=== PATIENT | male | born 1970 | race Hispanic/Latino ===

== ENCOUNTER 2018-07-06 21:34 | Emergency (ER) | payer SELFPAY ==
[~2018-07-06] VITALS: Ht 175.3 cm; Wt 79.4 kg
[2018-07-06 23:52] LABS: CLARITY,URINE CLOUDY (CLEAR); COLOR,URINE YELLOW (YELLOW); LEUKOCYTE ESTERASE ,URINE 2+ (NEGATIVE); NITRITE,URINE NEGATIVE (NEGATIVE); PROTEIN,URINE DIPSTICK 1+ (NEGATIVE)
[2018-07-06 23:53] LABS: AMPHETAMINES SCREEN,URINE NEGATIVE (NEGATIVE); BENZODIAZEPINES SCREEN,URINE NEGATIVE (NEGATIVE); BILIRUBIN,URINE NEGATIVE (NEGATIVE); KETONES,URINE NEGATIVE (NEGATIVE); PHENCYCLIDINE SCREEN,URINE NEGATIVE (NEGATIVE); URINE UROBILINOGEN 0.2 mg/dL (0.2 - 1)
[2018-07-07 00:06] LABS: BACTERIA,URINE MANY /HPF; EPITHELIAL CELLS,URINE FEW /LPF; TRANSITIONAL EPI CELLS,URINE FEW; WBC,URINE (MAN) >50 /HPF (0-5)
[2018-07-07] MEDS ORDERED: BACTRIM DS TAB1 EACH PO (01:13)
[2018-07-07] MEDS ORDERED: TRIMETHOPRIM/SULFAMETHOXAZOLE 160-800 MG TAB PO ONE (01:15)
--- NOTE | 2018-07-07 01:31 | Diagnostic Imaging Report ---
EXAM: CT Abdomen and Pelvis WITHOUT contrast INDICATION: Right flank pain and dysuria. COMPARISON: None. TECHNIQUE: Abdomen and pelvis were scanned utilizing a multidetector helical scanner from the lung base to the pubic symphysis without administration of IV contrast. Absence of intravenous contrast decreases sensitivity for detection of focal lesions and vascular pathology. Coronal and sagittal reformations were obtained. Renal stone protocol was performed. IV CONTRAST: None. ORAL CONTRAST: Water RADIATION DOSE: Total DLP: 236.02 mGy*cm Estimated effective dose: (DLP x 0.015 x size factor) mSv COMPLICATIONS: None FINDINGS: LINES and TUBES: None. LOWER THORAX: Unremarkable HEPATOBILIARY: No focal hepatic lesions. No biliary ductal dilation. GALLBLADDER: No radio-opaque stones or sludge. No wall thickening. SPLEEN: No splenomegaly. PANCREAS: No focal masses or ductal dilatation. ADRENALS: No adrenal nodules KIDNEYS/URETERS: Mild left pelvocaliectasis. Small right extrarenal pelvis. No cystic or solid mass lesions. No stones. GI TRACT: No abnormal distention, wall thickening, or evidence of bowel obstruction. There are diverticula within the colon without evidence of diverticulitis. Appendix is normal. PELVIC ORGANS/BLADDER: The urinary bladder is moderately to markedly distended. There is diffuse urinary bladder wall thickening. Broad-based diverticulum off the posterior wall of the urinary bladder measures 3.5 cm on image 122. The prostate is mildly prominent measuring 5.4 x 4.5 cm in sagittal and AP dimensions. Punctate prostatic calcification. LYMPH NODES: No lymphadenopathy. VESSELS: Unremarkable. PERITONEUM / RETROPERITONEUM: No free air or fluid. BONES: There are degenerative changes in the lumbar spine. SOFT TISSUES: Small fat-containing umbilical hernia. IMPRESSION: 1. Diffuse wall thickening of the urinary bladder despite of moderate to marked distention may in part reflect neurogenic bladder. This can also be seen with detrusor hypertrophy secondary to obstructive uropathy. Cystitis is within the differential diagnosis in the proper clinical setting (dysuria). Correlate with urinalysis. 2. Mildly enlarged prostate. 3. Mild left pelvocaliectasis. Signed by: Dr. Raul Auguste M.D. on 07/07/2018 1:28 AM
[2018-07-07] MEDS ORDERED: FLOMAX0.4 MG PO (01:35)
[2018-07-07] MEDS ORDERED: LIDOCAINE HCL 2% 30 ML TUBE ONE (02:59)
[2018-07-07] MEDS ORDERED: LIDOCAINE JELLY 2% 10ML URO-JET ONE (03:02)
[2018-07-07 04:07] LABS: BASOPHILS # (AUTO) 0.1 (0.0-0.1); BASOPHILS % 0.6 % (0.0-1.0); EOSINOPHILS # (AUTO) 0.3 (0.0-0.4); EOSINOPHILS % 2.7 % (0.0-6.0); HEMATOCRIT 40.3 % (38.2-49.6); HEMOGLOBIN 13.9 g/dL (14.0-18.0); LYMPHOCYTES # (AUTO) 1.7 (1.0-3.2); LYMPHOCYTES % 15.7 % (18.0-39.1); MEAN CORPUSCULAR HEMOGLOBIN 33.3 pg (28-32); MEAN CORPUSCULAR HGB CONC 34.5 g/dL (31-35); MEAN CORPUSCULAR VOLUME 96.4 fL (81-99); MONOCYTES # (AUTO) 1.6 (0.2-0.8); MONOCYTES % 14.7 % (4.4-11.3); NEUTROPHILS # (AUTO) 7.2 (2.1-6.9); PLATELET COUNT 260 x10e3/uL (140-360); RED BLOOD COUNT 4.18 x10e6/uL (4.3-5.7)
[2018-07-07] MEDS ORDERED: LIDOCAINE JELLY 2% 10ML URO-JET TOP ONE (04:15)
[2018-07-07 04:42] LABS: ALANINE AMINOTRANSFERASE 22 IU/L (0-55); ALBUMIN 3.5 g/dL (3.5-5.0); ALKALINE PHOSPHATASE 91 IU/L (40-150); ANION GAP 15.3 mmol/L (8-16); BLOOD UREA NITROGEN 5 mg/dL (7-26); BUN/CREATININE RATIO 7 (6-25); CALCIUM 9.2 mg/dL (8.4-10.2); CARBON DIOXIDE 20 mmol/L (22-29); CHLORIDE 102 mmol/L (98-107); CREATININE, SERUM 0.71 mg/dL (0.72-1.25); EST GLOMERULAR FILTRATION RATE > 60 ML/MIN (60-); GLUCOSE 87 mg/dL (74-118); POTASSIUM 3.3 mmol/L (3.5-5.1); SODIUM 134 mmol/L (136-145)
[2018-07-07 05:58] VITALS: BP 115/76
== END 2018-07-07 06:47 | disposition home or self-care (01) ==
LOC: ER 21:34
DX: R30.0 Dysuria (principal); R33.9 Retention of urine, unspecified; N30.91 Cystitis, unspecified with hematuria; N40.1 Benign prostatic hyperplasia with lower urinary tract symptoms
CPT/HCPCS: 36415; 51700; 74176; 80053; 80307; 80320; 81001; 85025; 99284

== ENCOUNTER 2018-07-14 19:30 | Emergency (ER) | payer SELFPAY ==
[~2018-07-14] VITALS: Ht 175.3 cm; Wt 79.4 kg
[~2018-07-14 19:30] MED LIST: BACTRIM DS TAB1 EACH PO; FLOMAX0.4 MG PO
--- OUTSIDE RECORDS SUMMARY | 2018-07-14 19:33 | XMS REPORT | Clinical Summary ---
Author Author [facility] Organization [facility] Address Unknown Phone Unavailable Care Team Providers Care Distributor Of Directories Name Role Phone PCP Unavailable Allergies No Known Allergies Medications End Date Status Medication Sig Dispensed Refills Start Date Active acetaminophen-codeine Take 1 tablet 30 tablet 0 (TYLENOL/CODEINE #3) by mouth 7 300-30 mg per every 4 hours tabletIndications: Nodule as needed for of finger of right hand Pain. Active piroxicam (FELDENE) 20 mg Take 1 90 capsule 0 capsuleIndications: capsule by 7 Closed nondisplaced mouth daily fracture of left With food calcaneus with routine healing, unspecified portion of calcaneus, subsequent encounter Active ibuprofen (MOTRIN) 600 mg Take 1 tablet 30 tablet 0 tablet by mouth 7 every 8 hours as needed for Pain. 07/17/2018 Active hyoscyamine (LEVSIN/SL) Place 1 30 tablet 0 0.125 mg sublingual tablet under 9 tabletIndications: tongue every Hemorrhagic cystitis 4 hours as needed for up to 10 days for Cramping. Active traMADol (ULTRAM) 50 mg Take 1 tablet 30 tablet 0 tabletIndications: by mouth 9 Hemorrhagic cystitis every 6 hours as needed for Pain. 07/07/2018 Discontinued cephALEXin (KEFLEX) 500 Take 1 40 capsule 0 mg capsuleIndications: capsule by 9 Hemorrhagic cystitis mouth 4 times daily for 10 days. Active Problems Problem Noted Date Acute left ankle pain 03/26/2017 Impaired functional mobility, balance, gait, and endurance 03/26/2017 Acute pain of left foot 01/13/2017 Fracture follow-up 11/03/2016 History of heavy alcohol consumption 2016 Closed nondisplaced fracture of left calcaneus with routine healing 2016 Impaired activities of daily living 05/25/2015 [place]atur night palsy 05/24/2015 Nodule of finger of right hand 08/29/2014 Dermatitis 09/07/2006 Encounters Care Team Description Date Type Specialty Kip Harrison MD Robinson, David J, MD Hemorrhagic cystitis (Primary Dx); Acute urinary retention 07/07/2018 Emergency Emergency Medicine 07/07/2018 Travel after 07/13/2017 Immunizations Name Dates Previously Given Next Due Tdap Tetanus, diphtheria, 03/07/2011 acellular pertussis Vaccine Family History Medical History Relation Name Comments Heart Father Hypertension Father Arthritis Mother Hypertension Mother Relation Name Status Comments Father Alive Mother Alive Social History Date Tobacco Use Types Packs/Day Years Used Current Every Day Smoker Cigarettes 1 15 Smokeless Tobacco: Never Used Tobacco Cessation: Ready to Quit: No; Counseling Given: Yes Alcohol Use Drinks/Week oz/Week Comments Yes 12 pack a day Sex Assigned at Date Recorded Not on file Industry Job Start Date Occupation Not on file Not on file Not on file Travel End Travel History Travel Start No recent travel history available. Last Filed Vital Signs Time Taken Vital Sign Reading 07/07/2018 5:45 PM CDT Blood Pressure 130/71 07/07/2018 5:45 PM CDT Pulse 64 07/07/2018 5:45 PM CDT Temperature 36.9 C (98.4 F) 07/07/2018 5:45 PM CDT Respiratory Rate 18 07/07/2018 5:45 PM CDT Oxygen Saturation 99% - Inhaled Oxygen - Concentration 07/07/2018 8:38 AM CDT Weight 74.6 kg (164 lb 8 oz) - Height - 05/07/2017 1:03 PM [employer] Body Mass Index 22.94 Plan of Treatment Not on file Procedures Comments Procedure Name Priority Date/Time Associated Diagnosis BMP POC Routine 07/07/2018 12:15 PM CDT UA CHEMISTRIES STAT 07/07/2018 12:05 PM CDT after 07/13/2017 Results * BMP POC (07/07/2018 12:15 PM CDT) CO2 POC 24Comment: Physician Notified 21 - 32 mmol/L [facility] Chloride POC 102 98 - 107 mmol/L [facility] Potassium POC 3.7 3.50 - 5.10 mmol/L [facility] 1 Sodium POC 136 136 - 145 mmol/L [facility] 1 Glucose POC 96 74 - 106 mg/dL [facility] 1 Urea Nitrogen 5 (L) 7 - 18 mg/dL [facility] POC [facility] 1 Creatinine POC 0.6 0.6 - 1.3 mg/dL [facility] 1 Calcium Ionized 1.07 (L) 1.15 - 1.29 mmol/L [facility] POC [facility] 1 Hemoglobin POC 14.6 14.0 - 18.0 g/dL [facility] 1 Hematocrit POC 43.0 40.0 - 54.0 % [facility] 1 GFR, Estimated >60 mL/min/1.73 m2 [facility] 1 GFR, Estim, >60 mL/min/1.73 m2 [facility] Afr-Am [facility] 1 Performing Organization Address [facility] [place] MISYS [facility] 1 * UA CHEMISTRIES (07/07/2018 12:05 PM CDT) Color [place] [facility] 2 Clarity Hazy [facility] 2 Spec [place] 1.022 1.001 - 1.035 [facility] 2 pH 6.0 5 - 8 [facility] 2 Protein 3+ (A) NEG [facility] 2 Glucose Negative NEG [facility] 2 Ketone Trace (A) NEG [facility] 2 Bilirubin Negative NEG [facility] 2 Nitrate Negative NEG [facility] 2 Urobilinogen <1.0 0.2 - 1.0 EU/dL [facility] 2 Leukocyte 1+ (A) NEG [facility] 2 Blood 3+ (A) NEG [facility] 2 RBC >182 (H) 0 - 4 /HPF [facility] 2 WBC >182 (H) 0 - 5 /HPF [facility] 2 Mucous Present [facility] 2 Specimen Urine Performing Organization Address [facility] Phone Number MISYS [facility] 2 after 07/13/2017 Insurance Type Payer Benefit Subscriber ID Effective Phone Address Plan / Dates Group [facility] SELF-PAY SELF-PAY xxxxxxxxx 2018- [phone] [id number] [place] [address] (Self)
--- OUTSIDE RECORDS SUMMARY | 2018-07-14 19:33 | XMS REPORT ---
[facility] Address Unknown Phone Unavailable Care Team Providers Care Sec Reporting Consultant Name Role Phone Russell WELLS Unavailable Unavailable Problems This patient has no known problems. Allergies, Adverse Reactions, Alerts This patient has no known allergies or adverse reactions. Medications This patient has no known medications. Encounters Start Date/Time End Date/Time Encounter Type Admission Type Attending [facility] Facility Care Department Encounter ID 2018-07-07 10:33:56 2018-07-07 10:33:56 Emergency [facility] [id number] 2017-05-07 13:03:37 2017-05-07 13:03:37 Outpatient [facility] [id number] 2017-05-04 00:00:00 2017-05-04 00:00:00 Outpatient [facility] [id number] 2017-04-03 00:00:00 2017-04-03 00:00:00 Outpatient [facility] [id number] 2017-04-01 00:00:00 2017-04-01 00:00:00 Outpatient [facility] [id number] 2017-03-26 15:51:43 2017-03-26 15:51:43 Outpatient [facility] [id number] 2017-03-26 14:20:19 2017-03-26 14:20:19 Outpatient [facility] [id number] 2017-03-26 14:17:24 2017-03-26 14:17:24 Outpatient [facility] [id number] 2017-02-26 14:21:18 2017-02-26 14:21:18 Outpatient [facility] [id number] 2017-02-26 14:18:35 2017-02-26 14:18:35 Outpatient [facility] [id number] 2017-02-26 00:00:00 2017-02-26 00:00:00 Outpatient [facility] [id number] 2017-02-16 14:04:34 2017-02-16 14:04:34 Outpatient [facility] [id number] 2017-01-15 14:24:19 2017-01-15 14:24:19 Outpatient [facility] [id number] 2017-01-15 14:16:59 2017-01-15 14:16:59 Outpatient [facility] [id number] 2016-12-26 15:58:23 2016-12-26 15:58:23 Outpatient [facility] [id number] 2016-12-26 10:41:44 2016-12-26 10:41:44 Outpatient [facility] [id number] 2016-12-18 10:19:59 2016-12-18 10:19:59 Outpatient [facility] [id number] 2016-12-18 10:12:59 2016-12-18 10:12:59 Outpatient [facility] [id number] 2016-12-05 00:00:00 2016-12-05 00:00:00 Outpatient [facility] [id number] 2016-11-11 00:00:00 2016-11-11 00:00:00 Outpatient [facility] [id number] 2016-11-11 00:00:00 2016-11-11 00:00:00 Outpatient [facility] [id number] 2016-11-06 11:22:13 2016-11-06 11:22:13 Outpatient [facility] [id number] 2016-11-06 11:18:14 2016-11-06 11:18:14 Outpatient [facility] [id number] 2016-11-05 10:22:29 2016-11-05 10:22:29 Outpatient [facility] [id number] 2016-11-05 09:57:51 2016-11-05 09:57:51 Outpatient [facility] [id number] 2016 15:48:24 2016 15:48:24 Outpatient [facility] [id number] 2016-10-22 00:00:00 2016-10-22 00:00:00 Outpatient [facility] [id number] 2016-10-19 13:02:34 2016-10-19 13:02:34 Emergency [facility] [id number] 2016-10-19 11:38:42 2016-10-19 11:38:42 Emergency [facility] [id number] 2016-10-19 09:35:11 2016-10-19 09:35:11 Emergency [facility] [id number] 2016-10-19 08:44:06 2016-10-19 08:44:06 Emergency [facility] [id number] 2016-10-17 11:06:37 2016-10-17 11:06:37 Outpatient [facility] [id number] 2016-10-16 14:34:29 2016-10-16 14:34:29 Outpatient [facility] [id number] Results Test Description Test Time Test Comments Text Results Atomic Results Result Comments CT ABDOMEN/PELVIS WO 2018-07-07 01:08:00 [place] [address] Patient Name: MELODY SAAB MR #: [id number] : 1970 Age/Sex: 47/M Req #: [id number] Adm Physician: Ordered by: MORENO WELLS MD Report #: [id number] Location: ER Room/Bed: Procedure: [id number] CT/CT ABDOMEN/PELVIS WO Exam Date: 07/07/18 Exam Time: 0024 REPORT STATUS: Signed EXAM: CT Abdomen and Pelvis WITHOUT contrast INDICA TION: Right flank pain and dysuria. COMPARISON: None. TECHNIQUE: Abdomen and pelvis were scanned utilizing a multidetector helical scanner from the lung base to the pubic symphysis without administration of IV contrast. Absence of intravenous contrast decreases sensitivity for detection of focal lesions and vascular pathology. Coronal and sagittal reformations were obtained. Renal stone protocol was performed. IV CONTRAST: None. ORAL CONTRAST: Water RADIATION DOSE: Total DLP: 236.02 mGy*cm Estimated effective dose: (DLP x 0.015 x size factor) mSv COMPLICATIONS: None FINDINGS: LINES and TUBES: None. LOWER THORAX: Unremarkable HEPATOBILIARY: No focal hepatic lesions. No biliary ductal dilation. GALLBLADDER: No radio-opaque stones or sludge. No wall thickening. SPLEEN: No splenomegaly. PANCREAS: No focal masses or ductal dilatation. ADRENALS: No adrenal nodules KIDNEYS/URETERS: Mild left pelvocaliectasis. Small right extrarenal pelvis. No cystic or solid mass lesions. No stones. GI TRACT: No abnormal distention, wall thickening, or evidence of bowel obstruction. There are diverticula within the colon without evidence of diverticulitis. Appendix is normal. PELVIC ORGANS/BLADDER: The urinary bladder is moderately to markedly distended. There is diffuse urinary bladder wall thickening. Broad- based diverticulum off the posterior wall of the urinary bladder measures 3.5 cm on image 122. The prostate is mildly prominent measuring 5.4 x 4.5 cm in sagittal and AP dimensions. Punctate prostatic calcification. LYMPH NODES: No lymphadenopathy. VESSELS: Unremarkable. PERITONEUM / RETROPERITONEUM: No free air or fluid. BONES: There are degenerative changes in the lumbar spine. SOFT TISSUES: Small fat-containing umbilical hernia. IMPRESSION: 1. Diffuse wall thickening of the urinary bladder despite of moderate to marked distention may in part reflect neurogenic bladder. This can also be seen with detrusor hypertrophy secondary to obstructive uropathy. Cystitis is within the differential diagnosis in the proper clinical setting (dysuria). Correlate with urinalysis. 2. Mildly enlarged prostate. 3. Mild left pelvocaliectasis. Signed by: Dr. Raul Paz M.D. on 07/07/2018 1:28 AM Dictated By: SARAH PAZ MD, MD 7 Transcribed By: MELI on 07/07/18127 COPY TO: MORENO WELLS MD
[2018-07-14 22:42] VITALS: BP 126/87
== END 2018-07-14 22:44 | disposition home or self-care (01) ==
LOC: ER 19:30
DX: Z46.6 Encounter for fitting and adjustment of urinary device (principal); R33.9 Retention of urine, unspecified; Z82.49 Family history of ischemic heart disease and other diseases of the circulatory system; N31.9 Neuromuscular dysfunction of bladder, unspecified
CPT/HCPCS: 99282

== ENCOUNTER 2020-07-22 13:04 | Emergency (ER) | payer SELFPAY ==
[~2020-07-22] VITALS: Ht 175.3 cm; Wt 79.4 kg
[2020-07-22] MEDS ORDERED: ASPIRIN 81 MG CHEW TAB PO ONE (13:45)
[2020-07-22 13:46] LABS: BASOPHILS # (AUTO) 0.1 (0.0-0.1); BASOPHILS % 1.6 % (0.0-1.0); EOSINOPHILS # (AUTO) 0.3 (0.0-0.4); HEMATOCRIT 39.5 % (38.2-49.6); HEMOGLOBIN 13.9 g/dL (14.0-18.0); LYMPHOCYTES # (AUTO) 1.6 (1.0-3.2); LYMPHOCYTES % 25.9 % (18.0-39.1); MEAN CORPUSCULAR HEMOGLOBIN 33.7 pg (28-32); MEAN CORPUSCULAR HGB CONC 35.2 g/dL (31-35); MEAN CORPUSCULAR VOLUME 95.9 fL (81-99); MONOCYTES # (AUTO) 0.6 (0.2-0.8); MONOCYTES % 9.5 % (4.4-11.3); NEUTROPHILS # (AUTO) 3.7 (2.1-6.9); NEUTROPHILS % 58.8 % (38.7-80.0); PLATELET COUNT 158 x10e3/uL (140-360); RED BLOOD COUNT 4.12 x10e6/uL (4.3-5.7); RED CELL DISTRIBUTION WIDTH 13.8 % (11.7-14.4)
[2020-07-22 14:07] LABS: INR 0.87; PROTHROMBIN TIME 12.4 seconds (11.9-14.5)
[2020-07-22 14:08] LABS: ALANINE AMINOTRANSFERASE 66 IU/L (0-55); ALBUMIN 4.2 g/dL (3.5-5.0); ALBUMIN/GLOBULIN RATIO 1.2 (0.8-2.0); ALKALINE PHOSPHATASE 86 IU/L (40-150); ANION GAP 18.4 mmol/L (8-16); BLOOD UREA NITROGEN 5 mg/dL (7-26); BUN/CREATININE RATIO 7 (6-25); CALCIUM 8.8 mg/dL (8.4-10.2); CARBON DIOXIDE 23 mmol/L (22-29); CHLORIDE 100 mmol/L (98-107); CREATINE KINASE 128 IU/L (30-200); EST GLOMERULAR FILTRATION RATE > 60 ML/MIN (60-); GLUCOSE 126 mg/dL (74-118); PARTIAL THROMBOPLASTIN TIME 32.6 seconds (23.8-35.5); POTASSIUM 3.4 mmol/L (3.5-5.1); SODIUM 138 mmol/L (136-145)
[2020-07-22 14:23] LABS: CLARITY,URINE HAZY (CLEAR); COLOR,URINE YELLOW (YELLOW); KETONES,URINE NEGATIVE (NEGATIVE); LEUKOCYTE ESTERASE ,URINE SMALL (NEGATIVE); NITRITE,URINE POSITIVE (NEGATIVE); PROTEIN,URINE DIPSTICK NEGATIVE (NEGATIVE); URINE UROBILINOGEN 0.2 mg/dL (0.2 - 1)
[2020-07-22 14:27] LABS: BACTERIA,URINE MANY /HPF; EPITHELIAL CELLS,URINE FEW /LPF; RBC,URINE 0-5 /HPF (0-5)
[2020-07-22 14:28] LABS: MUCUS,URINE FEW (RARE)
[2020-07-22] MEDS ORDERED: AZITHROMYCIN 250 MG TAB PO STA (15:17)
[2020-07-22] MEDS ORDERED: CEFTRIAXONE SOD 1 GM/50 ML BAG IV ONE (15:30)
== END 2020-07-22 15:58 | disposition home or self-care (01) ==
LOC: ER 13:28
DX: R07.89 Other chest pain (principal); N39.0 Urinary tract infection, site not specified; K70.9 Alcoholic liver disease, unspecified; N42.9 Disorder of prostate, unspecified; R94.31 Abnormal electrocardiogram [ECG] [EKG]; F17.210 Nicotine dependence, cigarettes, uncomplicated
CPT/HCPCS: 36415; 71045; 80053; 81001; 82550; 82553; 83690; 83880; 84484; 85025; 85610; 85730; 93005; 99284; J0696

== ENCOUNTER 2022-05-17 13:59 | Inpatient (IN) | payer BC, OTHER ==
[~2022-05-17] VITALS: Ht 175.3 cm; Wt 76.3 kg
[2022-05-17] MEDS ORDERED: CEFTRIAXONE 1 GM VIAL ONE (14:50)
[2022-05-17] MEDS ORDERED: IOPAMIDOL 370 MG/ML 100 ML INFUS..BTL INJ ONE (14:55)
[2022-05-17] MEDS ORDERED: SODIUM CHLORIDE FLUSH 10 ML SYR INJ PRN (16:00)
[2022-05-17 18:51] VITALS: BP 137/74
[2022-05-17 19:00] VITALS: BP 137/74
[2022-05-17 20:00] VITALS: BP 130/90
[2022-05-17 21:00] VITALS: BP 130/90
[2022-05-17] MEDS ORDERED: MELATONIN 3 MG TAB PO PRN (21:00)
[2022-05-17] MEDS ORDERED: DOCUSATE SODIUM 100 MG CAP PO PRN (21:00)
[2022-05-17] MEDS ORDERED: ACETAMINOPHEN 325 MG TAB PO PRN (21:00)
[2022-05-17] MEDS ORDERED: ONDANSETRON HCL INJ 2MG/ML 2ML 2 MG/ML VIAL IV PRN (21:00)
[2022-05-17] MEDS: TAMSULOSIN HCL 0.4 MG CAP PO SCH (22:10)
[2022-05-18] VITALS (7 sets, daily range): BP systolic 93–134; BP diastolic 71–91
[2022-05-18 07:38] LABS: ALBUMIN 3.4 g/dL (3.5-5.0); ANION GAP 10.5 mmol/L (8-16); CREATININE, SERUM 0.84 mg/dL (0.72-1.25); POTASSIUM 3.5 mmol/L (3.5-5.1)
[2022-05-18 08:03] LABS: MAGNESIUM 1.9 MG/DL (1.3-2.1)
[2022-05-18 08:14] LABS: BASOPHILS # (AUTO) 0.1 (0.0-0.1); BASOPHILS % 0.9 % (0.0-1.0); EOSINOPHILS # (AUTO) 0.4 (0.0-0.4); EOSINOPHILS % 4.4 % (0.0-6.0); HEMOGLOBIN 13.8 g/dL (14.0-18.0); LYMPHOCYTES # (AUTO) 1.8 (1.0-3.2); MEAN CORPUSCULAR HEMOGLOBIN 33.2 pg (28-32); MEAN CORPUSCULAR HGB CONC 33.7 g/dL (31-35); MEAN CORPUSCULAR VOLUME 98.6 fL (81-99); MONOCYTES # (AUTO) 0.8 (0.2-0.8); MONOCYTES % 8.8 % (4.4-11.3); NEUTROPHILS # (AUTO) 5.6 (2.1-6.9); NEUTROPHILS % 64.6 % (38.7-80.0); PLATELET COUNT 394 x10e3/uL (140-360); RED BLOOD COUNT 4.16 x10e6/uL (4.3-5.7); RED CELL DISTRIBUTION WIDTH 13.2 % (11.7-14.4)
[2022-05-18] MEDS: TAMSULOSIN HCL 0.4 MG CAP PO SCH ×2 (09:37→21:23)
[2022-05-19] VITALS (7 sets, daily range): BP systolic 119–149; BP diastolic 75–98
[2022-05-19] MEDS: TAMSULOSIN HCL 0.4 MG CAP PO SCH (08:35)
[2022-05-19 10:17] LABS: ANION GAP 11.5 mmol/L (8-16); CALCIUM 9.4 mg/dL (8.4-10.2); CREATININE, SERUM 0.82 mg/dL (0.72-1.25); MAGNESIUM 1.9 MG/DL (1.3-2.1); PHOSPHORUS 2.7 MG/DL (2.3-4.7); POTASSIUM 3.5 mmol/L (3.5-5.1)
[2022-05-19] MEDS ORDERED: FLOMAX0.4 MG PO (15:47)
[2022-05-19] MEDS ORDERED: ONDANSETRON HCL 4 MG ORAL DISINTEGRATING TAB PO PRN (17:00)
== END 2022-05-19 20:31 | disposition home or self-care (01) | DRG 699 ==
LOC: FSED 14:04 → ERHOLD 14:21 → MED/SURG2 17:16 → OBSVTOIN 21:01
PROVIDERS: ADMIT Internal Medicine; ATTEND Internal Medicine
DX: T83.511A Infection and inflammatory reaction due to indwelling urethral catheter, initial encounter (principal); N13.6 Pyonephrosis; N13.8 Other obstructive and reflux uropathy; N17.9 Acute kidney failure, unspecified; N40.1 Benign prostatic hyperplasia with lower urinary tract symptoms; R33.8 Other retention of urine; R00.1 Bradycardia, unspecified; B95.2 Enterococcus as the cause of diseases classified elsewhere; N32.3 Diverticulum of bladder; F10.20 Alcohol dependence, uncomplicated; K70.30 Alcoholic cirrhosis of liver without ascites; L72.3 Sebaceous cyst; D64.9 Anemia, unspecified; R31.29 Other microscopic hematuria; R80.9 Proteinuria, unspecified; Z87.891 Personal history of nicotine dependence; Z96.0 Presence of urogenital implants; Z20.822 Contact with and (suspected) exposure to COVID-19
CPT/HCPCS: 36415; 51700; 74176; 80048; 80053; 81003; 83605; 83735; 84100; 85025; 87040; 87086; 87186; 93005; 99284; J0696; Q9967

== ENCOUNTER 2023-09-29 12:08 | Emergency (ER) | payer OTHER ==
[~2023-09-29] VITALS: Ht 175.3 cm; Wt 80.3 kg
[2023-09-29] MEDS ORDERED: SODIUM CHLORIDE 0.9% 100 ML ONE (14:30)
[2023-09-29] MEDS ORDERED: IOPAMIDOL 370 MG/ML 100 ML INFUS..BTL INJ ONE (14:30)
[2023-09-29] MEDS: SODIUM CHLORIDE 0.9% 1000ML 1,000 ML IV ONE (14:49)
[2023-09-29 15:49] VITALS: PULSE 67; RESP 18; TEMP 98.9; O2SAT 97
== END 2023-09-29 15:50 | disposition home or self-care (01) ==
LOC: FSED 12:09
DX: R42 Dizziness and giddiness (principal); K76.9 Liver disease, unspecified; K21.9 Gastro-esophageal reflux disease without esophagitis; F17.210 Nicotine dependence, cigarettes, uncomplicated
CPT/HCPCS: 70496; 70498; 80048; 85025; 93005; 99284; J7030; J7050; Q9967

== ENCOUNTER 2023-12-01 09:54 | Emergency (ER) | payer OTHER ==
[~2023-12-01] VITALS: Ht 175.3 cm; Wt 80.5 kg
[2023-12-01 10:05] VITALS: PULSE 66; RESP 18; TEMP 99.6; O2SAT 97
[2023-12-01] MEDS ORDERED: PREDNISONE20 MG PO (10:25)
[2023-12-01] MEDS: DIPHENHYDRAMINE HCL 25 MG CAP PO ONE (10:40)
== END 2023-12-01 11:17 | disposition home or self-care (01) ==
LOC: FSED 10:01
DX: R21 Rash and other nonspecific skin eruption (principal); L29.9 Pruritus, unspecified; K76.9 Liver disease, unspecified; K21.9 Gastro-esophageal reflux disease without esophagitis
CPT/HCPCS: 80048; 80076; 85025; 99283